=== PATIENT | female | born 1960 | race Asian ===

== ENCOUNTER 2016-06-18 08:49 | Day surgery (SDC) | payer OTHER ==
[~2016-06-18 08:49] MED LIST: IV START KIT ONE; LACTATED RINGERS 1,000 ML IV SCH; LIDOCAINE 1% 2 ML VIAL ID PRN
[2016-06-18] MEDS ORDERED: FENTANYL 5 ML ONE (09:39)
[2016-06-18] MEDS ORDERED: MIDAZOLAM HCL 1 MG/ML 2ML VIAL ONE (09:39)
[2016-06-18] MEDS ORDERED: PROPOFOL 20 ML IV ONE ×2 (10:29→10:58)
[2016-06-18] MEDS ORDERED: ROCURONIUM BROMIDE 10 MG/ML DOSE IV ONE (10:29)
[2016-06-18] MEDS ORDERED: SUCCINYLCHOLINE CHL 20 MG/ML DOSE ONE (10:29)
[2016-06-18] MEDS ORDERED: LIDOCAINE 2% (MULTI DOSE) 10 ML VIAL ONE (10:29)
[2016-06-18] MEDS ORDERED: DEXAMETHASONE SOD PHOS 4 MG/1 ML VIAL ONE (10:30)
[2016-06-18] MEDS ORDERED: ONDANSETRON 4 MG/2ML 2 ML VIAL ONE (10:30)
[2016-06-18] MEDS ORDERED: EPHEDRINE SULFATE UD SYR 25 MG 25 MG/5 ML SYRINGE IV ONE (10:41)
[2016-06-18] MEDS ORDERED: ONDANSETRON 4 MG/2ML 2 ML VIAL IV PRN (10:52)
[2016-06-18] MEDS ORDERED: PROMETHAZINE HCL 25 MG/ML VIAL IM PRN (10:52)
[2016-06-18] MEDS ORDERED: HYDROMORPHONE HCL 1 MG/ML SYRINGE IV PRN (10:52)
[2016-06-18] MEDS ORDERED: ATROPINE SULFATE 0.4 MG/1 ML VIAL IV PRN (10:52)
[2016-06-18] MEDS ORDERED: FENTANYL 100 MCG/2 ML VIAL IV PRN (10:52)
[2016-06-18] MEDS ORDERED: NALOXONE HCL 0.4 MG/ML VIAL IV PRN (10:52)
[2016-06-18] MEDS ORDERED: MEPERIDINE 25 MG/ML SYRINGE IV PRN (10:52)
[2016-06-18] MEDS ORDERED: LACTATED RINGERS 1,000 ML IV SCH (11:00)
--- NOTE | 2016-06-18 11:20 | PCMBPN ---
Brief Post Op Note: Date of Procedure: 06/18/16 Start Time: 1100 Preoperative Diagnosis: 1. postmenopausal bleeding Postoperative Diagnosis: 1. [Same] Procedure: Exam Under Anesthesia, Endometrial biopsy Surgeon: Maggie Charles DO Assist:Guero Fine Anesthesia: General Findings: stenotic cervix, mobile uterus Condition: stable Complications: none IV Fluids: [] mLs of LR [] Urine Output: 50 mLs Estimated Blood Loss: 5 mLs Tourniquet Time: [N/A] Specimens: [N/A] Implants: none Drains: [N/A]
[2016-06-18] MEDS ORDERED: IBUPROFEN 800 MG TABLET PO PRN (11:32)
[2016-06-18] MEDS ORDERED: LACTATED RINGERS 1,000 ML ONE (11:39)
--- NOTE | 2016-06-18 12:00 | OP ---
Ruma Remy : 1960 SURGEON: Sunita Charles D.O. TIMBER SIZER: Dr. Shamar Garcia. PREOPERATIVE DIAGNOSIS: Postmenopausal bleeding. POSTOPERATIVE DIAGNOSIS: Postmenopausal bleeding. PROCEDURE: Exam under anesthesia and endometrial biopsy. ANESTHESIA: General. FINDINGS: A stenotic cervix at the mobile uterus. CONDITION: Stable. COMPLICATIONS: None. URINE OUTPUT: 50 mL. ESTIMATED BLOOD LOSS: 5 mL. GRAFTS AND IMPLANTS: None. PROCEDURE IN DETAIL: The patient was taken back to the operating room where general anesthesia was easily obtained. She was prepped and draped in a dorsolithotomy position in a normal sterile fashion. Exam under anesthesia revealed a small mobile uterus that was extremely anteverted. A speculum was placed into the patient's vagina and the cervix was identified found behind a band of tissue. The anterior lip of the cervix was grasped with a single tooth tenaculum. A uterine sound was attempted to be passed through the cervix, but was unsuccessful. A lacrimal duct gland was attempted to be passed through the cervix, but that was again unsuccessful. Finally, the decision was made to pass a spinal needle through the cervical canal into the uterus and aspirate the uterine contents with normal saline. The aspirated fluid was placed in formalin with a portion of tissue and sent to pathology. At this time, the procedure was determined to be complete. All instruments were removed from the patient's vagina and she was easily aroused from anesthesia. She was transferred to PACU in stable condition. JOB: [id number]
--- NOTE | 2016-06-22 10:58 | SURGPATH ---
[facility] [address] [place] [id number] Patient Name: HYUN MAI MR#: [id number] : 1960 Gender: F Specimen #: [id number] Collected: 06/18/2016 Received: 06/21/2016 Reported: 06/22/2016 Submitting Phys: MARCUS DALE Copy To Phys: [facility] MARINO GONZALES Clinical History / Pre-Operative Diagnosis: NONE PROVIDED Specimen Source / Surgical Procedure Performed: ENDOMETRIAL BIOPSY Interpretation: ENDOMETRIUM, BIOPSY: - SCANT BENIGN GLANDULAR EPITHELIUM Electronically Signed Out Baldo Worley M.D. Gross Description: The specimen is received in a formalin filled container labeled with the patient's name and "endometrial biopsy". An aggregate of blood tinged mucoid material is 1.5 x 1.5 x 0.4 cm. Totally embedded in one cassette. Devin Christy, PSharonASharon Microscopic Description: Levels contain abundant mucous, blood, and few strips of superficial unremarkable glandular epithelium. Intact endometrial glands and stroma are not present. 1: [id number] N95.0
== END 2016-06-18 12:55 | disposition home or self-care (01) ==
LOC: SDC 08:49
PROVIDERS: ATTEND Obstetrics & Gynecology
PROC: 0UDB7ZX Extraction of Endometrium, Via Natural or Artificial Opening, Diagnostic (ICD-10-PCS; principal; 2016-06-18)
DX: N95.0 Postmenopausal bleeding (principal)
CPT/HCPCS: 58100; J3010; J1100; J2250; J2405; J7120 ×2; J2001